=== PATIENT | male | born 1980 | race Caucasian/White ===

== ENCOUNTER 2016-11-01 13:07 | Emergency (ER) | payer OTHER ==
[2016-11-01 13:57] VITALS: BP 168/97; PULSE 87; RESP 16; TEMP 98.4; O2SAT 94
--- NOTE | 2016-11-01 14:28 | UCPHY ---
H & P Time Seen by Provider: 11/01/16 14:10 Patient Type: New HPI/ROS: CHIEF COMPLAINT: Right rib pain HISTORY OF PRESENT ILLNESS: 36-year-old male complaining of acute right rib pain after he was at work sliding open a large heavy door and felt immediate pain in his right ribs mid axillary line approximately T7 level. Occurred shortly prior to arrival. Reproducible pain with deep inspiration, coughing. No direct trauma or fall. No radiation of pain. REVIEW OF SYSTEMS: A ten point review of systems was performed and is negative with the exception of the items mentioned in the HPI PAST MEDICAL & SURGICAL HISTORY: No pertinent medical or surgical history SOCIAL HISTORY:works at [employer] PHYSICAL EXAM (Prior to examination, patient consented to physical exam, hands were washed and my usual and customary physical exam procedures followed) 1) GENERAL: Well-developed, well-nourished, alert and oriented. Appears nontoxic 2) HEAD: Normocephalic, atraumatic 3) HEENT: Sclera anicteric. . 4) NECK: Full range of motion, no meningeal signs. 5) LUNGS: Clear auscultation bilaterally, no wheezes, no rhonchi, no retractions. tender to palpation right chest mid axillary line approximately 7th rib. Reproducible pain with palpation and with deep inspiration. No crepitus. No visible signs of trauma or visible abnormality 6) HEART: Regular rate and rhythm, no murmur, no heave, no gallop. 7) ABDOMEN: No guarding, no rebound, no focal tenderness, negative McBurney's, negative Mtz's, negative Rovsing's, negative peritoneal sign, 8) MUSCULOSKELETAL: No peripheral edema or discoloration. 9) BACK: No CVA tenderness 10) SKIN: No rash, no petechiae. DIFFERENTIAL DIAGNOSIS: in no particular include but limited to rib contusion , rib fracture, muscle strain, pneumothorax, hemothorax Smoking Status: Never smoked Constitutional: Initial Vital Signs Temperature (C) 36.9 C 11/01/16 13:52 Heart Rate 87 11/01/16 13:52 Respiratory Rate 16 11/01/16 13:52 Blood Pressure 168/97 H 11/01/16 13:52 O2 Sat (%) 94 11/01/16 13:52 O2 Delivery Mode Room Air Allergies/Adverse Reactions: hydrocodone Allergy (Verified 11/01/16 13:58) Penicillins Allergy (Verified 11/01/16 13:58) Home Medications: Medication Instructions Recorded Cyclobenzaprine [Flexeril 10 MG 10 mg PO TID #15 tab 11/01/16 (RX)] MDM/Departure - MDM Diagnostics: Chest, PA and lateral. History: Right axillary pain. Findings: Heart size is within normal limits. Pulmonary vascularity is normal. The lungs are clear. No evidence of pleural effusion or pneumothorax. Mild levoscoliotic curvature upper thoracic spine.. Impression: No evidence of acute cardiopulmonary abnormality. Dictated By: Marvin Rodríguez MD Images reviewed by myself Procedures: Incentive spirometer and instructions ED Course/Re-evaluation: Patient shows no signs of respiratory distress. I think he can be discharged and followed up by work comp provider. Given incentive spirometer instructions on how to use. Given analgesia. Usual and customary respiratory precautions provided. - Depart Disposition: Home, Routine, Self-Care Clinical Impression: Rib pain on right side Instructions: Chest Wall Pain (ED) Additional Instructions: Seek medical attention if you develop new or worsening chest pain, if you developshortness of breath, or any other symptoms that concern you. Use your incentive spirometer every hour while awake Stand Alone Forms: Work Comp Follow Up Prescriptions: Cyclobenzaprine [Flexeril 10 MG (RX)] 10 mg PO TID #15 tab Referrals: Follow-up, with your work comp provider in 2-3 days [Other] - As per Instructions - PQRS PQRS Measurement: Not applicable
--- NOTE | 2016-11-01 14:48 | DX ---
Chest, PA and lateral. History: Right axillary pain. Findings: Heart size is within normal limits. Pulmonary vascularity is normal. The lungs are clear. No evidence of pleural effusion or pneumothorax. Mild levoscoliotic curvature upper thoracic spine.. Impression: No evidence of acute cardiopulmonary abnormality.
[2016-11-01] MEDS ORDERED: IBUPROFEN 200 MG TAB PO ONE (15:16)
== END 2016-11-01 15:30 | disposition home or self-care (01) ==
LOC: CED 13:07
DX: R07.81 Pleurodynia (principal)
CPT/HCPCS: 71020-PO; 99203-PO; G0463-PO